=== PATIENT | male | born 1995 | race Caucasian/White ===

== ENCOUNTER 2019-05-14 07:40 | Emergency (ER) | payer SELFPAY | END 2019-05-14 08:27 | disposition home or self-care (01) | LOC: MADERS 07:40 | DX: J11.1 Influenza due to unidentified influenza virus with other respiratory manifestations (principal) | CPT/HCPCS: 99282 ==

== ENCOUNTER 2019-09-28 09:02 | Emergency (ER) | payer SELFPAY | END 2019-09-28 09:44 | disposition home or self-care (01) | LOC: MADERS 09:02 | DX: H66.91 Otitis media, unspecified, right ear (principal) | CPT/HCPCS: 99282 ==

== ENCOUNTER 2022-04-06 11:27 | Emergency (ER) | payer SELFPAY | END 2022-04-06 12:09 | disposition home or self-care (01) | LOC: MADERS 11:27 | DX: J02.0 Streptococcal pharyngitis (principal) | CPT/HCPCS: 99282 ==